=== PATIENT | female | born 1985 | race American Indian/Alaskan Native ===

== ENCOUNTER 2018-01-09 19:20 | Emergency (ER) | payer MEDICAID ==
[2018-01-09 20:16] LABS: Basophils % (Auto) 0.3 % (0.0-1.8); Eosinophils # (Auto) 0.1 K/mm3 (0.0-0.4); Eosinophils % (Auto) 0.5 % (0.0-4.3); Hematocrit 29.1 % (30.3-42.9); Hemoglobin 9.2 gm/dl (10.1-14.3); Lymphocytes # (Auto) 2.7 K/mm3 (1.2-5.4); Mean Corpuscular HGB Conc 32 % (30-34); Monocytes # (Auto) 0.6 K/mm3 (0.0-0.8); Monocytes % (Auto) 4.5 % (0.0-7.3); Platelet Count 362 K/mm3 (140-440); Red Blood Count 4.39 M/mm3 (3.65-5.03)
[2018-01-09 20:37] LABS: Mean Corpuscular Hemoglobin 21 pg (28-32); Mean Corpuscular Volume 66 fl (79-97); Red Cell Distribution Width 21.9 % (13.2-15.2)
[2018-01-09 20:39] LABS: Alanine Aminotransferase 9 units/L (7-56); Albumin 4.2 g/dL (3.9-5); BUN/Creatinine Ratio 14; Blood Urea Nitrogen 10 mg/dL (7-17); Calcium 8.7 mg/dL (8.4-10.2); Hemolysis Index 0
[2018-01-09 20:57] LABS: Bilirubin,Urine NEG (Negative); Blood,Urine NEG (Negative); Color,Urine Yellow (Yellow); Mucus,Urine 3+ /HPF; Protein,Urine <15 mg/dL mg/dL (Negative); Urobilinogen,Urine < 2.0 mg/dL (<2.0)
--- NOTE | 2018-01-09 22:07 | Emergency Department Report ---
ED Abdominal Pain HPI - General Chief Complaint: Abdominal Pain Stated Complaint: PELVIC PAIN Time Seen by Provider: 01/09/18 22:07 Source: patient Mode of arrival: Ambulatory Limitations: No Limitations - History of Present Illness Initial Comments: Patient says she's been having lower abdominal pain on and off for the past 3 months. [place] and she was lower abdominal pain and evaluated. She said in [place] she was told that she has an ovarian cyst. She denies any vaginal discharge or bleeding. MD Complaint: abdominal pain -: Gradual, month(s) (3) Location: RLQ Radiation: none Migration to: no migration Severity: mild Severity scale (0 -10): 3 Quality: aching, dull Consistency: intermittent Improves With: nothing Worsens With: nothing Associated Symptoms: denies other symptoms - Related Data Previous Rx's Medication Instructions Recorded Last Taken Type Ibuprofen [Motrin] 800 mg PO Q8HR PRN #20 tablet 01/10/18 Unknown Rx Allergies Allergy/AdvReac Type Severity Reaction Status Date / Time No Known Allergies Allergy Verified 01/09/18 23:57 ED Review of Systems ROS: Stated complaint: PELVIC PAIN Other details as noted in HPI Comment: All other systems reviewed and negative Constitutional: denies: chills, fever Eyes: denies: vision change ENT: denies: ear pain, hearing loss Respiratory: denies: cough, shortness of breath Cardiovascular: denies: chest pain, palpitations Endocrine: no symptoms reported Gastrointestinal: abdominal pain. denies: nausea, vomiting, diarrhea Genitourinary: denies: dysuria, frequency Musculoskeletal: denies: back pain, joint swelling Skin: denies: rash, change in color Neurological: denies: headache, weakness, numbness, paresthesias Psychiatric: denies: anxiety, depression Hematological/Lymphatic: denies: easy bleeding, easy bruising ED Past Medical Hx - Past Medical History Previous Medical History?: Yes Additional medical history: ovarian cyst - Surgical History Past Surgical History?: Yes Additional Surgical History: abd surgery - Medications Home Medications: Home Medications Medication Instructions Recorded Confirmed Last Taken Type Ibuprofen [Motrin] 800 mg PO Q8HR PRN #20 tablet 01/10/18 Unknown Rx ED Physical Exam - General Limitations: No Limitations General appearance: alert, in no apparent distress - Head Head exam: Present: atraumatic, normocephalic, normal inspection - Eye Eye exam: Present: normal appearance, PERRL, EOMI Pupils: Present: normal accommodation - ENT ENT exam: Present: normal exam, normal orophraynx, mucous membranes moist - Neck Neck exam: Present: normal inspection, full ROM. Absent: tenderness - Respiratory Respiratory exam: Present: normal lung sounds bilaterally. Absent: respiratory distress, wheezes, rhonchi - Cardiovascular Cardiovascular Exam: Present: regular rate, normal rhythm, normal heart sounds - GI/Abdominal GI/Abdominal exam: Present: soft, tenderness (RLQ), normal bowel sounds. Absent : distended, guarding, rebound - Rectal Rectal exam: Present: deferred - Extremities Exam Extremities exam: Present: normal inspection, full ROM, normal capillary refill - Back Exam Back exam: Present: normal inspection, full ROM. Absent: tenderness - Neurological Exam Neurological exam: Present: alert, oriented X3 - Psychiatric Psychiatric exam: Present: normal affect, normal mood. Absent: anxious - Skin Skin exam: Present: warm, dry, intact, normal color ED Course Vital Signs 01/09/18 01/09/18 01/09/18 19:43 21:49 21:50 Temperature 98.1 F 98.2 F Pulse Rate 89 75 Respiratory 17 16 Rate Blood Pressure 124/74 Blood Pressure 114/72 [Left] O2 Sat by Pulse 99 100 99 Oximetry 01/09/18 01/09/18 01/09/18 22:00 22:16 22:46 Temperature Pulse Rate Respiratory Rate Blood Pressure 134/96 134/96 114/81 Blood Pressure [Left] O2 Sat by Pulse 100 99 100 Oximetry 01/10/18 00:50 Temperature Pulse Rate Respiratory 16 Rate Blood Pressure Blood Pressure [Left] O2 Sat by Pulse Oximetry ED Medical Decision Making - Lab Data Result diagrams: 01/09/18 20:02 01/09/18 20:02 - Radiology Data Radiology results: report reviewed, image reviewed - Medical Decision Making RLQ Abdominal Pain Critical care attestation.: If time is entered above; I have spent that time in minutes in the direct care of this critically ill patient, excluding procedure time. ED Disposition Clinical Impression: Right ovarian cyst Abdominal pain Qualifiers: Abdominal location: right lower quadrant Qualified Code(s): R10.31 - Right lower quadrant pain Disposition: - TO HOME OR SELFCARE Is pt being admited?: No Does the pt Need Aspirin: No Condition: Stable Instructions: Abdominal Pain (ED), Ovarian Cyst (ED) Additional Instructions: Please follow up with OBGYN Dr Pierre Barros on Wednesday. Return to the ED if your condition worsens. Prescriptions: Ibuprofen [Motrin] 800 mg PO Q8HR PRN #20 tablet PRN Reason: Pain Referrals: PRIMARY CARE, [Primary Care Provider] - 3-5 Days MARVIN BARROS MD [Staff Physician] - 3-5 Days Time of Disposition: 01:31
[2018-01-09 22:40] LABS: HCG Qualitative,Urine Negative (Negative)
[2018-01-09 22:54] VITALS: BP 114/81
--- NOTE | 2018-01-09 23:31 | Ultrasound Report ---
FINAL REPORT PROCEDURE: US PELVIS DUPLEX DOPPLER COMP TECHNIQUE: Real-time transabdominal sonography in multiple planes of the pelvis was performed. The pelvic structures were not optimally visualized. Transvaginal sonography was then performed to better evaluate the structures and/or abnormalities described below with image documentation. Grayscale, color flow Doppler imaging and velocity spectral waveform analysis of the ovaries was employed (duplex imaging). CPT 16616, 09789, and 32214 HISTORY: RLQ abdominal Pain COMPARISON: No prior studies are available for comparison. FINDINGS: UTERUS Size: 9.2 x 4.3 x 4.9 cm. Endometrial thickness: 10 mm. Orientation: anteverted. Cervix: Normal. Fibroids/masses: None. RIGHT Ovary: 5.9 x 5.8 x 5.4 cm. Appearance: There is a large dominant cyst this measures 5.2 centimeters.. Doppler images: Normal spectral waveforms and color flow. The systolic and diastolic velocities are within normal limits. LEFT Ovary: Not visualized on this study Pelvic fluid: Minimal fluid identified in the lower pelvis. Other: None. IMPRESSION: There is a dominant 5.2 centimeter simple cyst on the right ovary. The uterus has a normal size and appearance. The left ovary is not visualized. Slight fluid identified in the lower pelvis.
[2018-01-09] MEDS ORDERED: ATIVAN ONE (23:41)
--- NOTE | 2018-01-09 23:41 | Ultrasound Report ---
FINAL REPORT PROCEDURE: US PELVIS DUPLEX DOPPLER COMP TECHNIQUE: Real-time transabdominal sonography in multiple planes of the pelvis was performed. The pelvic structures were not optimally visualized. Transvaginal sonography was then performed to better evaluate the structures and/or abnormalities described below with image documentation. Grayscale, color flow Doppler imaging and velocity spectral waveform analysis of the ovaries was employed (duplex imaging). CPT 89526, 84048, and 37255 HISTORY: RLQ abdominal Pain COMPARISON: No prior studies are available for comparison. FINDINGS: UTERUS Size: 9.2 x 4.3 x 4.9 cm. Endometrial thickness: 10 mm. Orientation: anteverted. Cervix: Normal. Fibroids/masses: None. RIGHT Ovary: 5.9 x 5.8 x 5.4 cm. Appearance: There is a large dominant cyst this measures 5.2 centimeters.. Doppler images: Normal spectral waveforms and color flow. The systolic and diastolic velocities are within normal limits. LEFT Ovary: Not visualized on this study Pelvic fluid: Minimal fluid identified in the lower pelvis. Other: None. IMPRESSION: There is a dominant 5.2 centimeter simple cyst on the right ovary. The uterus has a normal size and appearance. The left ovary is not visualized. Slight fluid identified in the lower pelvis.
[2018-01-10] MEDS ORDERED: TORADOL IV ONE (00:35)
--- NOTE | 2018-01-10 01:20 | Cat Scan Report ---
FINAL REPORT PROCEDURE: CT ABDOMEN PELVIS W CON TECHNIQUE: Computerized axial tomography of the abdomen and pelvis was performed after the IV injection of iodinated nonionic contrast. HISTORY: RLQ abdominal pain COMPARISON: No prior studies are available for comparison. FINDINGS: Visualized lower thorax: No significant abnormality. Liver: Normal size and attenuation. Spleen: Normal size and attenuation. Gallbladder and biliary system: Normal. Pancreas: Normal. Adrenals: Normal. Kidneys: Normal. GI tract: There is no evidence of intestinal obstruction. No ileus or enteritis. The cecum, appendix and colon are normal.. Lymph nodes and mesentery: Normal. Vasculature: Normal. Bladder: Normal. Reproductive organs: The uterus is normal. There is a 5 centimeter dominant cyst on the right ovary. The left adnexal region is normal.. Peritoneum: Very slight fluid in the lower pelvis.. Musculoskeletal structures: No significant abnormality. Other: None. IMPRESSION: There is no evidence of intestinal or urinary tract obstruction. No ileus or enteritis. The appendix is normal. 5 centimeter dominant cyst right ovary. Slight fluid lower pelvis.
== END 2018-01-10 01:49 | disposition home or self-care (01) ==
LOC: EDBD → ED 19:20
DX: N83.201 Unspecified ovarian cyst, right side (principal)
CPT/HCPCS: 36415; 74177; 76830; 80053; 81001; 81025; 83690; 85025; 93975; 96374; 99284; J1885; Q9967; J2060